=== PATIENT | male | born 1950 | race Caucasian/White ===

== ENCOUNTER 2021-12-03 12:55 | Outpatient (CLI) | payer MEDICARE, SELFPAY ==
[2021-12-03 13:28] LABS: Uric Acid 8.3 mg/dL (3.5-7.2)
== END 2021-12-03 23:59 | disposition home or self-care (01) ==
PROVIDERS: Visit Provider Nurse Practitioner Family
DX: M79.672 Pain in left foot (principal); M79.89 Other specified soft tissue disorders
CPT/HCPCS: 84550